=== PATIENT | male | born 1985 | race Caucasian/White ===

== ENCOUNTER 2018-06-26 09:00 | Emergency (ER) | payer OTHER, SELFPAY ==
[2018-06-26 09:09] VITALS: BP 140/77; PULSE 77; RESP 14; TEMP 36.6; O2SAT 98; BMI 29.9
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
[2018-06-26] MEDS: KETOROLAC 60 MG/2 ML VIAL IM (09:58)
[2018-06-26 10:08] VITALS: BP 112/73; PULSE 71; RESP 15; O2SAT 99
== END 2018-06-26 10:18 | disposition home or self-care (01) ==
PROVIDERS: Emergency Provider Emergency Medicine
DX: M54.6 Pain in thoracic spine (principal); S16.1XXA Strain of muscle, fascia and tendon at neck level, initial encounter; V43.52XA Car driver injured in collision with other type car in traffic accident, initial encounter
CPT/HCPCS: 96372; 99282; 99283; J1885

== ENCOUNTER 2020-04-20 20:58 | Emergency (ER) | payer OTHER, SELFPAY ==
[2020-04-20 21:07] VITALS: BP 143/65; PULSE 94; RESP 14; TEMP 37.1; O2SAT 99; BMI 30.2
--- NOTE | 2020-04-20 21:48 | ED.GENADULT ---
HPI - General Adult General Chief complaint: Ear Stated complaint: right ear pain with some bleeding Time Seen by Provider: 04/20/20 21:32 Source: patient Mode of arrival: Ambulatory Limitations: no limitations History of Present Illness HPI narrative: Otherwise healthy 35-year-old male here for evaluation of right ear pain and swelling in bleeding. Patient states that he had his ears flushed by his primary doctor the end of last week. Since that time he has had some increasing pain to his right ear to the point today where his symptoms seem to get worse and there was some blood drainage from the area. Has not tried anything for symptoms prior to arrival Related Data Previous Rx's Medication Instructions Recorded cyclobenzaprine 5 mg PO TID PRN #10 tab 06/26/18 ciprofloxacin-hydrocortisone 3 drop EAR-RIGHT BID 7 Days #10 ml 04/20/20 [Cipro HC] Allergies Allergy/AdvReac Type Severity Reaction Status Date / Time oxycodone Allergy Verified 06/26/18 09:09 Review of Systems Constitutional Constitutional: Denies fever(s) ENT Ears, Nose, Mouth, and Throat: Reports ear discharge, Reports otalgia, Denies facial pain, Denies sinus pain, Denies sinus pressure and Denies sore throat Comments: Right ear pain and drainage Cardiovascular Cardiovascular: Denies chest pain Respiratory Respiratory: Denies cough Musculoskeletal Musculoskeletal: Denies arthralgias and Denies myalgias Integumentary/Breasts Skin/Breast: Denies rash Neurologic Neurologic: Denies behavioral changes Psychiatric Psychiatric: Denies behavioral changes Hematologic/Lymphatic Hematologic/Lymphatic: Denies easy bleeding and Denies easy bruising Patient History Medical History Healthy adult (Acute) Social History Smoking Status: Never smoker alcohol intake: never substance use type: does not use Smoking Status: Never smoker alcohol intake frequency: a few times a month Substance Use Type: does not use Exam Initial Vital Signs Initial Vital Signs: Vital Signs Temperature 98.7 F 04/20/20 21:07 Pulse Rate 94 H 04/20/20 21:07 Respiratory Rate 14 04/20/20 21:07 Blood Pressure 143/65 H 04/20/20 21:07 Pulse Oximetry 99 04/20/20 21:07 Const General: cooperative, healthy appearing and comfortable [facility] Head: normal to inspection and normocephalic Ears: TM normal on the left and EAC abnormal erythema on the right, edema on the right, EAC tenderness on the right and otic discharge bloody on the right; no foreign body Nose: external nose normal Resp Effort & Inspection: normal respiratory effort Skin Lesions: no lesions Rashes: no rashes Extrem General: capillary refill normal Course Orders Ordered: Discontinued Medications Ciprofloxacin/Dexamethasone (Ciprodex Otic Susp) 4 drops EAR-RIGHT NOW ONE Stop: 04/20/20 21:49 Last Admin: 04/20/20 22:18 Dose: Not Given Documented by: SENG Vital Signs Vital signs: Vital Signs - 8 hr 04/20/20 21:07 Temperature 98.7 F Pulse Rate 94 H Respiratory Rate 14 Blood Pressure 143/65 H Pulse Oximetry 99 Medical Decision Making MDM Narrative Medical decision making narrative: History and physical exam consistent with otitis externa most likely related to having his your flushed a couple days ago. Will start on antibiotic drops. Patient was given return precautions and follow-up instructions. The small portion of the tympanic membrane on the right that was visualized does not appear to have any perforations. I do not feel the patient needs an ear wick placed. Discharge Plan Departure Patient Disposition: Home Clinical Impression: Otitis externa Qualifiers: Otitis externa type: unspecified type Chronicity: acute Laterality: right Qualified Code(s): H60.501 - Unspecified acute noninfective otitis externa, right ear Discharge Date/Time: 04/20/20 22:30 Instructions: How to Instill Ear Drops, DI for Otitis Externa Activity Restrictions/Additional Instructions: Unfortunately we do not have a prepack of the antibiotic drops that you need for your here. Fill the prescription and start taking them as directed. You can take Tylenol and/or ibuprofen for any discomfort. Contact your primary provider for a follow-up. Return to the emergency department for any new or worsening symptoms Prescriptions: New Cipro HC 0.2-1 % drops,suspension 3 drop EAR-RIGHT BID 7 Days Qty: 10 RF: 0 No Action cyclobenzaprine 5 mg tablet 5 mg PO TID PRN (Reason: muscle spasm) Qty: 10 RF: 0
--- NOTE | 2020-04-20 22:29 | PC.NURSE ---
Had ears flushed tuesday at MD office for wax removal.
== END 2020-04-20 22:30 | disposition home or self-care (01) ==
PROVIDERS: Emergency Provider Emergency Medicine
DX: H60.501 Unspecified acute noninfective otitis externa, right ear (principal)
CPT/HCPCS: 99281

== ENCOUNTER → 2020-04-21 12:21 | Outpatient (CLI) | payer OTHER, SELFPAY ==
--- NOTE | 2020-04-21 | DI.CT.S_ITS ---
PROCEDURE: CT SINUS SCREEN WO CON INDICATIONS: chronic sinusitis, unspecified TECHNIQUE: Noncontrast 3.0 mm axial images acquired from the frontal sinuses to the mid-sella, with coronal and sagittal reformats. For radiation dose reduction, the following was used: automated exposure control, adjustment of mA and/or kV according to patient size. COMPARISON: None. FINDINGS: Image quality: Excellent. Maxillary Sinuses: No bony remodeling or destruction. There is [id number] mucosal thickening seen involving the right inferior maxillary sinus. Minimal to mild left maxillary sinus mucosal thickening is seen. Ethmoid Air Cells: No bony remodeling or destruction. Moderate mucosal thickening is seen within the ethmoid air cells. There is demineralization of the ethmoid air cells septations. Sphenoid Sinuses: No bony remodeling or destruction. Sinuses are clear. Frontal Sinuses: No bony remodeling or destruction. Moderate mucosal thickening is seen within the inferomedial frontal sinuses. Ostiomeatal Complexes: Ostiomeatal complexes are patent, they are constitutionally narrowed with bilateral Zay cells. The ostiomeatal complexes are further narrowed by soft tissue thickening, particularly on the right side. Miscellaneous: Visualized intra-orbital contents are normal. No jerri bullosa or paradoxical turbinate curvature. There is moderate leftward nasal septal deviation. There is also a leftward directed bony nasal septal spur, as on series 4, image 26. IMPRESSION: Paranasal sinus disease is seen, which is most prominent within the ethmoid air cells. Moderate leftward nasal septal deviation can be seen. Narrowed ostiomeatal complexes, particularly on the right side. Dictated by: Maurizio Alvarado M.D. on 04/21/2020 at 11:38 Approved by: Maurizio Alvarado M.D. on 04/21/2020 at 11:42
== END ==
PROVIDERS: Referring Provider Internal Medicine; Visit Provider Internal Medicine
DX: J32.8 Other chronic sinusitis (principal); J34.2 Deviated nasal septum
CPT/HCPCS: 70486